=== PATIENT | female | born 1965 | race Hispanic/Latino ===

== ENCOUNTER 2017-05-22 07:38 | Outpatient (CLI) | payer OTHER ==
--- NOTE | 2017-05-22 10:13 | MRI ---
MRI CERVICAL SPINE WITHOUT IV CONTRAST: Date: 05/22/17 HISTORY: Patient complains of neck pain that radiates down right shoulder with numbness into right arm and de león d. Spondylosis. COMPARISON: MRI cervical spine on 08/02/11. FINDINGS: There is mucosal thickening present in the sphenoid sinus, and to a lesser extent in the left maxilla ry antrum. Cervicomedullary junction has a normal MRI appearance. As noted on the prior exam, there are postsurgical changes related to anterior cervical fusion at the C5-6 level with anterior plate and screws present. C2-3 Level: There is no disc bulge or disc herniation. Central spinal canal and neural foramina are patent. C3-4 Level: There is minimal disc bulge, but the central spinal canal and neural foramina are patent. C4-5 Level: There is a mild broad based disc osteophyte complex which has progressed when compared to the prior s tudy with associated left central and paracentral disc protrusion. This results in effacement of the ventral subarachnoid space with mild flattening of the central and left anterolateral aspect of the s maico cord. There is normal signal intensity in the spinal cord at this level. Neural foramina are pa tent. C5-6 Level: There is posterior osteophyte formation present, similar to the prior study, which does result in duane rowing of the ventral subarachnoid space. There is mild left-sided neural foraminal narrowing due to bony encroachment. The right neural foramen is patent. C6-7 Level: There is a broad based disc osteophyte complex which results in generalized narrowing of the central spinal canal with effacement of the ventral subarachnoid space. There is no significant mass effect o n the spinal cord. There is evidence of moderate bilateral neural foraminal narrowing which has progr essed from the prior exam. C7-T1 Level: There is no disc bulge or disc herniation. The central spinal canal and neural foramina are patent. IMPRESSION: 1. Postoperative change is again seen at the C5-6 level. 2. Disc degenerative changes above and below the levels of postsurgical changes with a broad based d isc osteophyte complex and central disc protrusion at the C4-5 level which results in mild mass effec t on the anterior aspect of the spinal cord, but the neural foramina are patent. At the C6-7 level, t here is a disc osteophyte complex which does result in moderate bilateral neural foraminal narrowing and mild narrowing of the ventral subarachnoid space. POS: [facility]
== END 2017-05-22 07:39 | disposition home or self-care (01) ==
LOC: SCSMRI 07:38
PROVIDERS: ATTEND Nurse Practitioner Family
DX: M47.812 Spondylosis without myelopathy or radiculopathy, cervical region (principal); M50.221 Other cervical disc displacement at C4-C5 level
CPT/HCPCS: 72141

== ENCOUNTER 2018-08-23 14:55 | Outpatient (CLI) | payer OTHER ==
--- NOTE | 2018-08-23 17:20 | MRI ---
MR CERVICAL SPINE WITHOUT CONTRAST: 08/23/18 INDICATION: 53-year-old female with radicular pain. COMPARISON: Prior MR of cervical spine dated 05/22/17. FINDINGS: ACDF at C5-6 appears unchanged. Spinal alignment is similar appearing. The visualized posterior fossa is unremarkable. Bone marrow signal intensity appears within normal limits. At C2-C3, there is no appreciable central canal or neural foraminal narrowing. There is mild facet tony int degenerative change. At C3-C4, there is facet hypertrophy and uncovertebral hypertrophy inducing stable mild left neural f oraminal narrowing. There is a stable mild broad based disc bulge at this level. At C4-C5, there is a broad based bulge with a superimposed left paracentral protrusion. The protrusio n has slightly enlarged causing worsening left ventral lateral flattening of the spinal cord without definite cord signal abnormality. No appreciable neural foraminal narrowing is evident at this level. At C5-C6, there is no appreciable central canal or overt neural foraminal narrowing. At C6-C7, there is uncovertebral hypertrophy and facet joint degenerative change inducing moderate bi lateral neural foraminal narrowing, slightly more pronounced than on the prior exam. At C7-T1, there is no appreciable central canal or neural foraminal narrowing. IMPRESSION: 1. Worsening left paracentral disc protrusion at C4-5 inducing worsening left ventral lateral sp inal cord effacement without cord signal abnormality. 2. Worsening moderate bilateral neural foraminal narrowing at C6-7 due to uncovertebral hypertr ophy. POS: [facility]
== END 2018-08-23 14:56 | disposition home or self-care (01) ==
LOC: SCSMRI 14:55
PROVIDERS: ATTEND Specialist
DX: M50.121 Cervical disc disorder at C4-C5 level with radiculopathy (principal); M48.02 Spinal stenosis, cervical region
CPT/HCPCS: 72141

== ENCOUNTER 2018-12-27 10:04 | Outpatient (CLI) | payer OTHER ==
--- NOTE | 2018-12-27 11:02 | MRI ---
Exam: Thoracic spine MRI without IV contrast: HISTORY: Thoracic radiculitis, mid to low back pain for several months, pain under bilateral axillary regions. FINDINGS: No evidence for abnormal marrow signal. No evidence for canal stenosis. The spinal cord appears unrem arkable without evidence for spinal cord mass or compression. 0.7 cm T2 hyperintense T1 slightly hypointense focus in the posterior right lobe of the liver statistically a liver cyst. IMPRESSION: Unremarkable thoracic spine MRI. No evidence for significant stenosis or spinal cord mass or spinal c ord compression. Evidence for a possible small right lobe of liver posterior cyst. Evidence for postsurgical changes in the cervical spine.
== END 2018-12-27 10:05 | disposition home or self-care (01) ==
LOC: SCSMRI 10:04
PROVIDERS: ATTEND Nurse Practitioner Family
DX: M54.14 Radiculopathy, thoracic region (principal); Z98.890 Other specified postprocedural states
CPT/HCPCS: 72146